=== PATIENT | male | born 1955 ===

== ENCOUNTER 2017-12-20 11:30 | Inpatient (IN) | payer OTHER ==
[~2017-12-20] VITALS: Ht 157.5 cm; Wt 68.0 kg
[~2017-12-20 11:30] MED LIST: CLONAZEPAM1 MG PO; COLACE100 MG PO; DOCUSATE SODIU100 MG PO; LYRICA150 MG PO; PERCOCET 5/3251 TAB PO; ULTRACET PO
[2018-01-01] MEDS ORDERED: DOCUSATE SODIU100 MG PO (12:13)
[2018-01-01] MEDS ORDERED: GABAPENTIN800 MG PO (12:13)
[2018-01-01] MEDS ORDERED: AMOX-CLAV 875-1 EACH PO (12:14)
[2018-01-01] MEDS ORDERED: PERCOCET 5-3251 EACH PO (12:14)
[2018-01-01] MEDS ORDERED: DIAZEPAM5 MG PO ×2 (12:14→13:04)
[2018-01-01] MEDS ORDERED: ACETAMINOPHEN-1 EAC2 PO (13:04)
== END 2018-01-01 16:56 | disposition home or self-care (01) | DRG 455 ==
LOC: O/R 12-31 05:36 → PED 12-31 05:36 → SURH 12-31 11:30 → PED 12-31 13:19
PROVIDERS: Orthopaedic Surgery Orthopaedic Surgery of the Spine
PROC: 0SG0071 Fusion of Lumbar Vertebral Joint with Autologous Tissue Substitute, Posterior Approach, Posterior Column, Open Approach (ICD-10-PCS; 2017-12-31)
PROC: 0ST20ZZ Resection of Lumbar Vertebral Disc, Open Approach (ICD-10-PCS; 2017-12-31)
PROC: 0SG00AJ Fusion of Lumbar Vertebral Joint with Interbody Fusion Device, Posterior Approach, Anterior Column, Open Approach (ICD-10-PCS; 2017-12-31)
PROC: 07DS3ZZ Extraction of Vertebral Bone Marrow, Percutaneous Approach (ICD-10-PCS; 2017-12-31)
PROC: 0SG00A0 Fusion of Lumbar Vertebral Joint with Interbody Fusion Device, Anterior Approach, Anterior Column, Open Approach (ICD-10-PCS; principal; 2017-12-31 12:30)
DX: M48.061 Spinal stenosis, lumbar region without neurogenic claudication (principal); M47.26 Other spondylosis with radiculopathy, lumbar region; M51.16 Intervertebral disc disorders with radiculopathy, lumbar region

== ENCOUNTER 2018-02-25 12:40 | Outpatient (CLI) | payer OTHER ==
[~2018-02-25 12:40] MED LIST changes: +ACETAMINOPHEN-1 EAC2 PO; +AMOX-CLAV 875-1 EACH PO; +DIAZEPAM5 MG PO; +GABAPENTIN800 MG PO; +PERCOCET 5-3251 EACH PO
== END 2018-02-25 12:47 | disposition home or self-care (01) ==
LOC: RAD 12:40
DX: M51.36 Other intervertebral disc degeneration, lumbar region (principal); Z98.1 Arthrodesis status

== ENCOUNTER 2018-07-09 12:20 | Outpatient (CLI) | payer OTHER | END 2018-07-09 17:00 | disposition home or self-care (01) | LOC: RAD 12:20 | DX: M51.36 Other intervertebral disc degeneration, lumbar region (principal); M50.30 Other cervical disc degeneration, unspecified cervical region; Z98.1 Arthrodesis status ==

== ENCOUNTER 2019-07-25 14:10 | Outpatient (CLI) | payer OTHER | END 2019-07-25 14:13 | disposition home or self-care (01) | LOC: RAD 14:10 | DX: M51.36 Other intervertebral disc degeneration, lumbar region (principal); M50.30 Other cervical disc degeneration, unspecified cervical region; Z98.1 Arthrodesis status ==

== ENCOUNTER 2024-01-10 11:37 | Day surgery (SDC) | payer OTHER ==
[~2024-01-10 11:37] MED LIST changes: +AVAPRO150 MG PO; +SIMVASTATIN; +SYNTHROID
[2024-01-10] MEDS ORDERED: BUPIVACAINE HCL/PF 0.5% 30ML ML ONE (13:12)
[2024-01-10] MEDS ORDERED: CEFAZOLIN SODIUM 1,000 MG VIAL ONE (13:21)
[2024-01-10] MEDS ORDERED: MIRALAX17 GM PO (13:48)
[2024-01-10] MEDS ORDERED: KETO10TA2 PO (13:48)
[2024-01-10] MEDS ORDERED: TRAMADOL HCL50 MG PO (13:48)
[2024-01-10] MEDS ORDERED: TYLENOL ARTHRI650 MG PO (13:48)
[2024-01-10] MEDS ORDERED: CEFAZOLIN SODIUM 1,000 MG VIAL IV ONE (15:00)
[2024-01-10] MEDS ORDERED: BUPIVACAINE HCL/PF 0.25% 30ML VIAL InF ONE (15:15)
[2024-01-10] MEDS ORDERED: ONDANSETRON HCL 2 MG/ML VIAL ONE (17:35)
== END 2024-01-10 23:15 | disposition home or self-care (01) ==
LOC: CIR.AMB 11:37
PROVIDERS: ATTEND Surgery
DX: K40.90 Unilateral inguinal hernia, without obstruction or gangrene, not specified as recurrent (principal); K42.0 Umbilical hernia with obstruction, without gangrene
CPT/HCPCS: 49650; 49594; C1781